=== PATIENT | male | born 1980 | race Two or more races ===

== ENCOUNTER 2020-04-12 17:45 | Emergency (ER) | payer SELFPAY ==
[~2020-04-12] VITALS: Ht 193 cm; Wt 88.5 kg
[2020-04-12 18:04] VITALS: BP 126/76
[2020-04-12] MEDS ORDERED: ACETAMINOPHEN ES 500 MG TABLET ONE (18:18)
--- NOTE | 2020-04-12 18:29 | NUR ---
RADIOLOGY AT BEDSIDE
[2020-04-12] MEDS ORDERED: ACETAMINOPHEN 325 MG TABLET PO ONE (18:30)
--- NOTE | 2020-04-12 19:10 | NUR ---
PT WAS DISCHARGED, PT BECAME AGRESSIVE TOWARDS MD. PT AMBULATED TO THE MD'S OFFICE AND CURSED AT THE MD. SECURITY WAS CALLED, PT REMOVED FROM E.D.
[2020-04-12] MEDS ORDERED: TRAMADOL HCL 50 MG TABLET ONE (19:26)
[2020-04-12] MEDS ORDERED: TRAMADOL HCL 50 MG TABLET PO ONE (19:30)
== END 2020-04-12 21:12 | disposition home or self-care (01) ==
LOC: ER 18:00
DX: S39.012A Strain of muscle, fascia and tendon of lower back, initial encounter (principal); M25.532 Pain in left wrist; V49.49XA Driver injured in collision with other motor vehicles in traffic accident, initial encounter; Y93.89 Activity, other specified; Y92.488 Other paved roadways as the place of occurrence of the external cause; Y99.8 Other external cause status
CPT/HCPCS: 72100-TC; 73130-TC

== ENCOUNTER 2020-07-26 18:40 | Inpatient (IN) | payer SELFPAY ==
[~2020-07-26] VITALS: Ht 193 cm; Wt 86.2 kg
--- NOTE | 2020-07-26 18:42 | NUR ---
BIB [facility], GENERALIZED BODY PAIN MORE ON L SIDE OF RIBS AND L BACK AREA,S/P FALL FROM HIS SKATEBOARD,(+) HELMET, NO LOC. TO ER BED 10, HOOKED TO MONITOR CHANGED TO HOSP GOWN, WARM BLANKET PROVIDED. AAO x 4. DR CHACON AT BEDSIDE
--- NOTE | 2020-07-26 18:56 | NUR ---
WHEELED OUT VIA [facility] BY [employer] FOR CT SCAN
[2020-07-26 19:04] LABS: CALCIUM, SERUM 8.9 mg/dL (8.5-10.1); CREATININE 0.9 mg/dL (0.6-1.3); POTASSIUM 3.5 mmol/L (3.5-5.1)
[2020-07-26 19:11] LABS: ALBUMIN 4.1 g/dL (3.4-5.0); BILIRUBIN,DIRECT 0.1 mg/dL (0.0-0.2); BILIRUBIN,TOTAL 0.3 mg/dL (0.2-1.0); TOTAL PROTEIN, SERUM 7.7 g/dL (6.4-8.2)
[2020-07-26 19:18] LABS: BASOPHILS # (AUTO) 0.1 /CMM (0.0-0.2); BASOPHILS % (AUTO) 0.4 % (0.0-2.0); EOSINOPHILS % (AUTO) 2.2 % (0.0-6.0); HEMATOCRIT 43 % (39-51); HEMOGLOBIN 14.4 g/dL (13.5-17.5); LYMPHOCYTES % (AUTO) 28.8 % (20.0-44.0); MEAN CORPUSCULAR HGB CONC 33 g/dl (31.0-36.0); MEAN CORPUSCULAR VOLUME 88 fL (80-96); MONOCYTES # (AUTO) 0.7 /CMM (0.1-1.30); MONOCYTES % (AUTO) 5.3 % (2.0-12.0); NEUTROPHILS # (AUTO) 8.8 /CMM (1.8-8.9); NEUTROPHILS % (AUTO) 63.3 % (43.0-81.0); PLATELET COUNT (AUTO) 219 /CMM (150-450); RED BLOOD CELL COUNT(AUTO) 4.91 MIL/uL (4.5-6.0); WHITE BLOOD COUNT (AUTO) 13.9 K/uL (4.3-11.0)
--- NOTE | 2020-07-26 19:21 | NUR ---
REPORT GIVEN TO YOLI MILLER FOR SUDEEP
--- NOTE | 2020-07-26 19:31 | NUR ---
ER SPEAKING TO PT REGARDING PLAN OF CARE
[2020-07-26] MEDS ORDERED: MORPHINE SULFATE INJ 4 MG/ML DISP.SYRIN ONE (19:32)
[2020-07-26] MEDS ORDERED: IOHEXOL-300 100 ML VIAL IV ONE (19:37)
[2020-07-26] MEDS ORDERED: IV NS 0.9% 250 ML IV ONE (19:37)
--- NOTE | 2020-07-26 19:42 | NUR ---
BROUGHT TO CT
[2020-07-26] MEDS ORDERED: MORPHINE SULFATE INJ 2 MG/ML DISP.SYRIN IV ONE (20:00)
[2020-07-26] MEDS ORDERED: KETOROLAC TROMETHAMINE INJ 30 MG/ML VIAL ONE (20:33)
--- NOTE | 2020-07-26 20:46 | NUR ---
PT IN BED, C/O BACK PAIN. AWAITING ORDERS.
[2020-07-26] MEDS ORDERED: KETOROLAC TROMETHAMINE INJ 30 MG/ML VIAL IV ONE (21:00)
--- NOTE | 2020-07-26 21:23 | NUR ---
DICK HARRISON AT BEDSIDE SPEAKING TO PT REGARDING ADMISSION.
--- NOTE | 2020-07-26 21:52 | NUR ---
AWAITING FOR BED
[2020-07-26] MEDS ORDERED: ACETAMINOPHEN 325 MG TABLET PO PRN (22:00)
[2020-07-26] MEDS ORDERED: ONDANSETRON HCL/PF 4 MG/2 ML VIAL IVP PRN (22:00)
[2020-07-26] MEDS ORDERED: HYDROCODONE/APAP 5/325MG TABLET PO PRN (22:00)
[2020-07-26] MEDS ORDERED: TEMAZEPAM 15 MG CAPSULE PO PRN (22:00)
[2020-07-26] MEDS ORDERED: MAGNESIUM HYDROXIDE 30 ML UDC PO PRN (22:00)
[2020-07-26] MEDS ORDERED: MAG HYDROX/AL HYDROX/SIMETH 30 ML UDC PO PRN (22:00)
[2020-07-26] MEDS ORDERED: Z GUARD REMEDY 2 OZ OINT TP PRN (22:00)
[2020-07-26] MEDS ORDERED: ONDANSETRON HCL/PF - ER 4 MG/2 ML VIAL IV ONE (22:30)
[2020-07-26] MEDS ORDERED: HYDROMORPHONE 1 MG/1 ML DISP.SYRIN IV ONE (22:30)
--- NOTE | 2020-07-26 22:31 | NUR ---
ROOM ASSIGNMENT: [id number]
[2020-07-26] MEDS ORDERED: ONDANSETRON HCL/PF 4 MG/2 ML VIAL ONE (22:32)
[2020-07-26] MEDS ORDERED: HYDROMORPHONE 1 MG/1 ML DISP.SYRIN ONE (22:32)
--- NOTE | 2020-07-26 22:43 | NUR ---
REPORT GIVEN TO ADNI MILLER FOR SUDEEP
--- NOTE | 2020-07-26 23:00 | NUR ---
MS CAR WASH ATTENDANT AUTOMATIC INITIAL NOTES ADMIT FROM ER VIA G[facility]IT[facility] ACCOMPANIED BY REDUCTION FURNACE OPERATOR HELPER. DX OF MULTIPLE RIB FRACTURE -LEFT AND SMALL PNEUMOTHORAX- LEFT. PT IS ALERT ORIENTED X4, ABLE TO MOVED WITH SOME HELPED BECAUSE OF THE PAIN EVERY-TIME HE MOVED. NO SIGNS OF ANY DISTRESS, NO SOB NOTED AT THIS TIME .PT STATES THAT HE WENT OUTSIDE TO BUY SOME FOODS OUTSIDE USING HIS SKATEBOARD THEN HE ACCIDENTALLY FALL WITH HELMET ON HIS HEAD. HE JUST REMEMBERED THAT BEFORE HE PASSED OUT HE SAW WOMAN HELPING HIM AND CALLED 911. HE FEEL GENERALIZED BODY PAIN FROM HIS FALL . PT AWARE WHERE HE AT , EDUCATE HIM HOW TO USED THE CALL LIGHT SYSTEM, OFFERED SOME FOOD TO EAT . PER PT HE'S A DRUZE AND HE'S ON KOSHER FOODS NO PORK . ASSESSMENT DONE AND RECORDED. KEPT HIM WARM AND COMFORTABLE AT ALL TIMES. PLACE CALL LIGHT AT REACH. WILL CONTINUE MONITORING.
[2020-07-26 23:48] VITALS: BP 121/88
--- NOTE | 2020-07-26 23:56 | NUR ---
ms danna notes Restoril po given as ordered per pt requested. Educate him also how to used the spirometer pt understood well and able to do return demonstration . will continue monitoring.
[2020-07-27] VITALS: BP 121/88
--- NOTE | 2020-07-27 02:24 | NUR ---
ms pail tester notes pt sleeping at this time without any distress noted. breathing even and unlabored. kept him warm and comfortable at all times. will continue monitoring, call light at reach.
[2020-07-27 07:00] LABS: BASOPHILS % (AUTO) 0.3 % (0.0-2.0); EOSINOPHILS % (AUTO) 2.7 % (0.0-6.0); HEMATOCRIT 40 % (39-51); HEMOGLOBIN 13.2 g/dL (13.5-17.5); LYMPHOCYTES # (AUTO) 1.8 /CMM (0.8-4.8); MEAN CORPUSCULAR HGB CONC 33 g/dl (31.0-36.0); MEAN CORPUSCULAR VOLUME 87 fL (80-96); MONOCYTES % (AUTO) 11.3 % (2.0-12.0); NEUTROPHILS # (AUTO) 5.5 /CMM (1.8-8.9); NEUTROPHILS % (AUTO) 64.7 % (43.0-81.0); PLATELET COUNT (AUTO) 183 /CMM (150-450); RED BLOOD CELL COUNT(AUTO) 4.54 MIL/uL (4.5-6.0); WHITE BLOOD COUNT (AUTO) 8.5 K/uL (4.3-11.0)
[2020-07-27] MEDS ORDERED: PANTOPRAZOLE 40 MG TABLET.DR PO SCH (07:30)
[2020-07-27 07:31] LABS: CALCIUM, SERUM 8.6 mg/dL (8.5-10.1); CREATININE 0.8 mg/dL (0.6-1.3); MAGNESIUM 2.2 mg/dL (1.8-2.4); PHOSPHORUS 3.8 mg/dL (2.5-4.9); POTASSIUM 3.6 mmol/L (3.5-5.1)
[2020-07-27] MEDS: MORPHINE SULFATE INJ 2 MG/ML DISP.SYRIN IV PRN ×2 (07:50→08:22)
[2020-07-27 08:00] VITALS: BP 113/63
--- NOTE | 2020-07-27 08:00 | NUR ---
RN OPENING NOTE PT AWAKE IN BED. A/O X3 AND KENYAN SPEAKING. COMPLAINT OF PAIN 9/10. PAIN MEDS GIVEN. NO COMPLAINT OF NAUSEA. ON RA WITH NO SOB OR RESPIRATORY DISTRESS PRESENT. NO EDEMA PRESENT. SEVERAL ABRASIONS PRESENT. CURRENTLY ON BEDREST WITH URINAL. KOSHER DIET. HL PRESENT ON L AC 18 G AND FLUSHES WELL. SAFETY MEASURES IN PLACE. SIDE RAILS RAISED. BED LOWERED. CALL LIGHT WITHIN REACH. WILL CONTINUE TO MONITOR.
[2020-07-27] MEDS ORDERED: HYDROMORPHONE 1 MG/1 ML DISP.SYRIN IV ONE (10:00)
--- NOTE | 2020-07-27 11:45 | NUR ---
RACK WASHER NOTE PT LEFT AMA. MD NOTIFIED. EDUCATED ON THE BENEFITS AND RISKS OF GOING AMA. EXITCARE UTILIZED AND EDUCATION GIVEN. HL REMOVED. ID BAND REMOVED.
== END 2020-07-27 12:00 | disposition left against medical advice (07) | DRG 184 ==
LOC: ER 18:43 → MED 22:41
PROVIDERS: ADMIT Nurse Practitioner Acute Care; ATTEND Nurse Practitioner Acute Care
DX: S22.42XA Multiple fractures of ribs, left side, initial encounter for closed fracture (principal); S06.0X1A Concussion with loss of consciousness of 30 minutes or less, initial encounter; S27.0XXA Traumatic pneumothorax, initial encounter; S27.321A Contusion of lung, unilateral, initial encounter; J90 Pleural effusion, not elsewhere classified; V00.131A Fall from skateboard, initial encounter; Y93.51 Activity, roller skating (inline) and skateboarding; F12.90 Cannabis use, unspecified, uncomplicated; Z20.822 Contact with and (suspected) exposure to COVID-19; D72.829 Elevated white blood cell count, unspecified
CPT/HCPCS: 36415; 70450-TC; 71045-TC; 71260-TC; 72125-TC; 80048-TC; 80076-TC; 83735-TC; 84100-TC; 85025-TC; 87081-TC; C9803; G0378; J1170; J1885; J2270; J2405; J7050; Q9967